=== PATIENT | male | born 2000 | race Caucasian/White ===

== ENCOUNTER 2020-10-24 23:35 | Emergency (ER) | payer SELFPAY ==
[~2020-10-24] VITALS: Ht 175.3 cm; Wt 81.6 kg
--- NOTE | 2020-10-24 23:35 | NUR ---
PT BIB [facility] PRE-BOOK. TAKEN TO CHAIR
[2020-10-24 23:38] VITALS: BP 120/73
--- NOTE | 2020-10-25 01:03 | NUR ---
PT TAKEN TO RADIOLOGY
--- NOTE | 2020-10-25 01:28 | NUR ---
PT RETURN FROM CT AND XRAY TO ER BED 4
--- NOTE | 2020-10-25 03:45 | NUR ---
Patient discharged with v/s stable. Written and verbal after care instructions given and explained. Patient verbalized understanding. Ambulatory with steady gait. All questions addressed prior to discharge. Advised to follow up with PMD. IN [facility].
== END 2020-10-25 03:45 ==
LOC: MED 23:35
DX: Z02.89 Encounter for other administrative examinations (principal); F17.290 Nicotine dependence, other tobacco product, uncomplicated; Z71.6 Tobacco abuse counseling; Z91.018 Allergy to other foods; V89.2XXA Person injured in unspecified motor-vehicle accident, traffic, initial encounter; Y93.89 Activity, other specified; Y92.89 Other specified places as the place of occurrence of the external cause; Y99.8 Other external cause status
CPT/HCPCS: 70450; 71045; 72125; 72170; 99285